=== PATIENT | female | born 1985 | race Caucasian/White ===

== ENCOUNTER 2018-07-10 14:04 | Emergency (ER) | payer MEDICAID ==
--- NOTE | 2018-07-10 14:13 | EDM.PDOC ---
ED HPI GENERAL MEDICAL PROBLEM - General Stated Complaint: SENT OVER FROM OB Time Seen by Provider: 07/10/18 14:07 - History of Present Illness INITIAL COMMENTS - FREE TEXT/NARRATIVE: HISTORY AND PHYSICAL: History of present illness: The patient is a 32-year-old female who is 29 weeks and was sent from labor and delivery for evaluation of complaints of left lower quadrant pain. The patient presented to labor and delivery with this left lower quadrant pain and she was evaluated with OB ultrasound CBC CMP and urine test, which I reviewed and are within normal limits except for the 4% bandemia and NST and Dr. Whitaker had contacted me because of her concern about the exquisite tenderness on palpation of the left lower quadrant area. She says the baby is fine and there is no related issues and she has informed me that the patient's tenderness is down low on the left lower abdomen near her old C- section scar. Dr. Whitaker did contact our surgeon on-call doctor Jory who recommended that the patient come to the ED for further testing. She and I have discussed the testing options we have available and the patient was sent here for evaluation by us. Dr. Whitaker did say that the patient has only one prior visit in April. On my interview with the patient she says the pain started suddenly at about 12 noon yesterday and was in the left lower quadrant and it comes and goes in intensity. It sometimes will be completely nonexistent and that will come back very strongly. She's had no fevers chills nausea vomiting or urinary complaints with this. She's had good pedal movement and no vaginal bleeding. She's had no flank pain and says the pain is localized to one area at the left lower quadrant which is very deep in her abdomen. She said that last night she woke up from sleep with the pain that was so severe that she was not able to go back to sleep and she was doubled over. Now in the ED she saying that the pain is not as bad but is more when you touch it. She has had one episode of watery diarrhea here in the ED which was not black or bloody yesterday she had had a normal bowel movement. The patient says she has never had a kidney stone colonic issues or any issues with inguinal hernias or incisional hernias. Review of systems: As per history of present illness and below otherwise all systems reviewed and negative. Past medical history: As per history of present illness and as reviewed below otherwise noncontributory. Surgical history: As per history of present illness and as reviewed below otherwise noncontributory. Social history: No reported history of drug or alcohol abuse. Family history: As per history of present illness and as reviewed below otherwise noncontributory. Physical exam: General: Well-developed well-nourished obese female who is nontoxic and ambulatory in the ED. She moves easily without any distress HEENT: Atraumatic, normocephalic, negative for conjunctival pallor or scleral icterus, mucous membranes moist, throat clear, neck supple, nontender, trachea midline. Lungs: Clear to auscultation, breath sounds equal bilaterally, chest nontender. Heart: S1S2, regular rate and rhythm no murmurs Abdomen: Soft, nondistended, sounds are slightly hypoactive. Negative for costovertebral tenderness. At the left lower abdomen just above the inguinal area there is exquisite tenderness with palpation but no palpable deformity of the abdominal wall is appreciated. The old Pfannenstiel scar is intact and the pain is just lateral to that and slightly superior. There is no gross fullness and there is no inguinal adenopathy or femoral tenderness or defects. Pelvis: Stable nontender. Genitourinary: Deferred. Rectal: Deferred. Extremities: Atraumatic, negative for cords or calf pain. Neurovascular unremarkable. Neuro: Awake, alert, oriented. Cranial nerves II through XII unremarkable. Cerebellum unremarkable. Motor and sensory unremarkable throughout. Exam nonfocal. Diagnostics: Patient already had CBC CMP and UA done at labor and delivery and I reviewed those tests CT scan of the abdomen and pelvis Therapeutics: IV placement morphine I discussed with the patient my conversation with Dr. Whitaker and the OB M.D. feels that if the CT scan is indicated she does not feel like there is any untoward effects of doing that as the patient is 29 weeks . The patient is aware that the baby will get radiation exposure and due to the discomfort and our concern about the severity of this discomfort she is very agreeable to doing the test as she wants to know what is causing the severe pain. Case was rediscussed with Dr. Whitaker at 1626 PM; he is aware of the CT scan findings and my examination and both of us are comfortable with discharge home as the patient has a follow-up appointment this week. I've advised the patient to use [id number] Tylenol and cold packs as well as resting. OB thinks this is likely more musculoskeletal in etiology at this point. I have advised the patient to monitor her symptoms and reasons to return Impression: Left lower quadrant pain, third trimester stable Definitive disposition and diagnosis as appropriate pending reevaluation and review of above. Left Lower Abdominal Pain Pain Score (Numeric/FACES): 2 - Related Data Allergies Allergy/AdvReac Type Severity Reaction Status Date / Time No Known Allergies Allergy Verified 07/10/18 14:16 Home Meds: Home Meds . [No Known Home Meds] 07/10/18 [History] ED ROS GENERAL - Review of Systems Review Of Systems: ROS reveals no pertinent complaints other than HPI. ED EXAM, GENERAL - Physical Exam Exam: See Below (see dictation) Course - Vital Signs Last Recorded V/S: Last Vital Signs Temp 36.7 C 07/10/18 14:17 Pulse 96 07/10/18 14:17 Resp 16 07/10/18 14:17 BP 106/81 07/10/18 14:17 Pulse Ox 96 07/10/18 14:17 - Orders/Labs/Meds Orders: Active Orders 24 hr Category Date Time Status Sodium Chloride 0.9% [Saline Flush] Med 07/10/18 14:27 Active 10 ml FLUSH ASDIRECTED PRN Sodium Chloride 0.9% [Saline Flush] Med 07/10/18 14:27 Active 2.5 ml FLUSH ASDIRECTED PRN Saline Lock Insert [OM.PC] Stat Oth 07/10/18 14:27 Ordered Medication Orders Sodium Chloride (Saline Flush) 10 ml FLUSH ASDIRECTED PRN PRN Reason: Keep Vein Open Sodium Chloride (Saline Flush) 2.5 ml FLUSH ASDIRECTED PRN PRN Reason: Keep Vein Open Meds: Medications Generic Name Dose Route Start Last Admin Trade Name Freq PRN Reason Stop Dose Admin Sodium Chloride 10 ml 07/10/18 14:27 Saline Flush FLUSH ASDIRECTED PRN Keep Vein Open Sodium Chloride 2.5 ml 07/10/18 14:27 Saline Flush FLUSH ASDIRECTED PRN Keep Vein Open Discontinued Medications Generic Name Dose Route Start Last Admin Trade Name Freq PRN Reason Stop Dose Admin Iopamidol 100 ml 07/10/18 15:10 07/10/18 15:11 Isovue Multipack-370 (76%) IVPUSH 07/10/18 15:11 100 ml ONETIME ONE Administration Morphine Sulfate 4 mg 07/10/18 14:36 07/10/18 15:07 Morphine IVPUSH 07/10/18 14:37 4 mg ONETIME ONE Administration Departure - Departure Time of Disposition: 16:35 Disposition: Home, Self-Care 01 Condition: Good Clinical Impression: Left lower quadrant abdominal pain during - Discharge Information Referrals: PCP,Unknown [Primary Care Provider] - Additional Instructions: The following information is given to patients seen in the emergency department who are being discharged to home. This information is to outline your options for follow-up care. We provide all patients seen in our emergency department with a follow-up referral. The need for follow-up, as well as the timing and circumstances, are variable depending upon the specifics of your emergency department visit. If you don't have a primary care physician on staff, we will provide you with a referral. We always advise you to contact your personal physician following an emergency department visit to inform them of the circumstance of the visit and for follow-up with them and/or the need for any referrals to a consulting specialist. The emergency department will also refer you to a specialist when appropriate. This referral assures that you have the opportunity for followup care with a specialist. All of these measure are taken in an effort to provide you with optimal care, which includes your followup. Under all circumstances we always encourage you to contact your private physician who remains a resource for coordinating your care. When calling for followup care, please make the office aware that this follow-up is from your recent emergency room visit. If for any reason you are refused follow-up, please contact the [facility] emergency department at and ask to speak to the emergency department charge nurse. [facility] [address] [place] [address] [phone] Push hydration and try to avoid caffeinated products and use [id number] Tylenol for pain management. He may also use ice packs to areas of discomfort and also try to do all movements such as getting out of bed and getting in and out of the car and all position changes more slowly. Please keep your appointment this week at the [facility] and return to ER as needed and as discussed - My Orders Last 24 Hours: My Active Orders 07/10/18 14:27 Sodium Chloride 0.9% [Saline Flush] 10 ml FLUSH ASDIRECTED PRN Sodium Chloride 0.9% [Saline Flush] 2.5 ml FLUSH ASDIRECTED PRN Saline Lock Insert [OM.PC] Stat - Assessment/Plan Last 24 Hours: My Active Orders 07/10/18 14:27 Sodium Chloride 0.9% [Saline Flush] 10 ml FLUSH ASDIRECTED PRN Sodium Chloride 0.9% [Saline Flush] 2.5 ml FLUSH ASDIRECTED PRN Saline Lock Insert [OM.PC] Stat
[2018-07-10] MEDS ORDERED: Sodium Chloride 0.9% 10 ML Syringe FLUSH PRN (14:27)
[2018-07-10] MEDS ORDERED: Sodium Chloride 0.9% 2.5 ML Syringe FLUSH PRN (14:27)
[2018-07-10] MEDS ORDERED: Morphine 2 MG/ML Syringe IVPUSH ONE (14:36)
[2018-07-10] MEDS ORDERED: Iopamidol 755 MG/ML 500 ML Multipack Bottle IVPUSH ONE (15:10)
--- NOTE | 2018-07-10 16:02 | CT ---
Indication: Left lower quadrant pain Technique: Routine post-contrast CT abdomen and pelvis. Consent provided to scan patient in 3rd trimester. Please note that all CT scans at this facility use dose modulation, iterative reconstruction, and/or weight-based dosing when appropriate to reduce radiation dose to as low as reasonably achievable. Comparison: No comparison Findings: Lung bases clear. No pleural effusion. Normal liver. Status post cholecystectomy. No biliary obstruction. Normal pancreas. Normal spleen. Normal adrenal glands and kidneys. No renal stone or ureteral stone. No hydroureter or hydronephrosis. No perinephric or periureteral stranding. No adenopathy. No bowel obstruction, free air or free fluid. No evidence of diverticulitis. Normal appendix. No fracture. Third trimester gestation noted with placenta anterior and baby with a vertex presentation. Normal bladder. Pelvic phleboliths. No hernia defect. Impression: Normal CT abdomen and pelvis with 3rd trimester intrauterine gestation. No evidence of diverticulitis or hydronephrosis. No adnexal mass or pelvic free fluid. Normal appendix. No evidence of pyelonephritis. Please note that all CT scans at this facility use dose modulation, iterative reconstruction, and/or weight-based dosing when appropriate to reduce radiation dose to as low as reasonably achievable. Dictated by Nathen Chaparro MD @ Jul 10 2018 3:55PM Signed by Dr. Nathen Chaparro @ Jul 10 2018 4:02PM
== END 2018-07-10 16:43 | disposition home or self-care (01) ==
LOC: MW.ED 14:04
DX: O99.89 Other specified diseases and conditions complicating pregnancy, childbirth and the puerperium (principal); R10.32 Left lower quadrant pain; Z3A.29 29 weeks gestation of pregnancy
CPT/HCPCS: 74177; 96374; 99284; J2270; Q9967

== ENCOUNTER 2018-09-15 05:28 | Inpatient (IN) | payer MEDICAID ==
[2018-09-15] MEDS ORDERED: Sodium Chloride 0.9% 2.5 ML Syringe FLUSH PRN (05:31)
[2018-09-15] MEDS ORDERED: Citric Acid/Sodium Citrate Solution 30 ML Cup PO ONE (05:31)
[2018-09-15] MEDS ORDERED: Sodium Chloride 0.9% 10 ML SDV IV PRN (05:31)
[2018-09-15] MEDS ORDERED: Sodium Chloride 0.9% 10 ML Syringe FLUSH PRN (05:31)
[2018-09-15] MEDS ORDERED: Oxytocin/0.9 % Sodium Chloride 30 UNIT/500 ML BAG IV SCH (05:45)
[2018-09-15] MEDS ORDERED: Diphtheria,Pertussis(Acell),Tetanus Vaccine 0.5 ML Syringe IM ONE (06:01)
[2018-09-15] MEDS: Lactated Ringers 1,000 ML IV SCH ×5 (06:11→19:49)
[2018-09-15] MEDS ORDERED: Oxytocin 10 Units/1 ML SDV ONE ×2 (06:25→06:26)
[2018-09-15] MEDS ORDERED: Morphine PF 10 MG/10 ML SDV ONE (06:25)
[2018-09-15] MEDS ORDERED: ceFAZolin/Dextrose,Iso-Osmotic 2 GM/50 ML Duplex Bag IV ONE (06:26)
[2018-09-15] MEDS ORDERED: ePHEDrine 50 MG/ML SDV ONE (06:26)
--- NOTE | 2018-09-15 06:36 | PCM.PREANE ---
Preanesthetic Assessment - Anesthesia/Transfusion/Family Hx Anesthesia History: Prior Anesthesia Without Reaction Other Type of Anesthesia Reaction Comment: "had hard time getting spinal in with last c/section" Family History of Anesthesia Reaction: No Transfusion History: No Prior Transfusion(s) Intubation History: Unknown - Review of Systems General: No Symptoms Pulmonary: No Symptoms Cardiovascular: No Symptoms Gastrointestinal: No Symptoms Neurological: No Symptoms Other: Reports: None - Physical Assessment Height: 5 ft 3.75 in Weight: 126.552 kg ASA Class: 2 Mental Status: Alert & Oriented x3 Airway Class: Mallampati = 2 Dentition: Reports: Normal Dentition, Missing Tooth/Teeth (bottom front tooth) Thyro-Mental Finger Breadths: 3 Mouth Opening Finger Breadths: 3 ROM/Head Extension: Full Lungs: Clear to Auscultation, Normal Respiratory Effort Cardiovascular: Regular Rate, Regular Rhythm - Lab Values: Laboratory Last Values WBC 9.39 K/uL (4.0-11.0) 09/15/18 06:10 RBC 3.64 M/uL (4.30-5.90) L 09/15/18 06:10 Hgb 11.5 g/dL (12.0-16.0) L 09/15/18 06:10 Hct 34.8 % (36.0-46.0) L 09/15/18 06:10 MCV 95.6 fL (80.0-98.0) 09/15/18 06:10 MCH 31.6 pg (27.0-32.0) 09/15/18 06:10 MCHC 33.0 g/dL (31.0-37.0) 09/15/18 06:10 RDW Std Deviation 48.0 fl (28.0-62.0) 09/15/18 06:10 RDW Coeff of Beba 14 % (11.0-15.0) 09/15/18 06:10 Plt Count 193 K/uL (150-400) 09/15/18 06:10 MPV 12.20 fL (7.40-12.00) H 09/15/18 06:10 Nucleated RBC % 0.0 /100WBC 09/15/18 06:10 Nucleated RBCs # 0 K/uL 09/15/18 06:10 - Allergies Allergies/Adverse Reactions: Allergies Allergy/AdvReac Type Severity Reaction Status Date / Time No Known Allergies Allergy Verified 09/15/18 05:30 - Blood Blood Available: No - Anesthesia Plan Pre-Op Medication Ordered: None - Acknowledgements Anesthesia Type Planned: Spinal (general anesthesia back-up plan) Pt an Appropriate Candidate for the Planned Anesthesia: Yes Alternatives and Risks of Anesthesia Discussed w Pt/Guardian: Yes Pt/Guardian Understands and Agrees with Anesthesia Plan: Yes PreAnesthesia Questionnaire HEENT History: Reports: Other (See Below) Other HEENT History: wears glasses Cardiovascular History: Reports: None Respiratory History: Reports: None Gastrointestinal History: Reports: Other (See Below) Other Gastrointestinal History: occasional heartburn with Genitourinary History: Reports: None [employer] History: Reports: Musculoskeletal History: Reports: Fracture Other Musculoskeletal History: hx fx wrist Neurological History: Reports: None Psychiatric History: Reports: None Endocrine/Metabolic History: Reports: Obesity/BMI 30+ Hematologic History: Reports: Anemia Immunologic History: Reports: None Oncologic (Cancer) History: Reports: None Dermatologic History: Reports: None - Infectious Disease History Infectious Disease History: Reports: None - Past Surgical History Head Surgeries/Procedures: Reports: None HEENT Surgical History: Reports: None Cardiovascular Surgical History: Reports: None Respiratory Surgical History: Reports: None GI Surgical History: Reports: Cholecystectomy Female Surgical History: Reports: Section Endocrine Surgical History: Reports: None Neurological Surgical History: Reports: None Musculoskeletal Surgical History: Reports: None Oncologic Surgical History: Reports: None Dermatological Surgical History: Reports: None - SUBSTANCE USE Smoking Status *Q: Former Smoker Tobacco Use Within Last Twelve Months: Cigarettes Recreational Drug Use History: No - HOME MEDS Home Medications: Home Meds PNV95/Ferrous Fumarate/FA [ Vitamin Tablet] 1 tab PO DAILY 09/13/18 [ History] - CURRENT (IN HOUSE) MEDS Current Meds: Current Medications Cefazolin Sodium/Dextrose 3 gm (/ Premix) 75 mls @ 100 mls/hr IV ONETIME ONE Stop: 09/15/18 08:14 Lactated Ringer's (Ringers, Lactated) 1,000 mls @ 500 mls/hr IV BOLUS MEAGAN Oxytocin/Sodium Chloride (Oxytocin 30 Unit/500 Ml-Ns) 30 unit in 500 mls @ 250 mls/hr IV TITRATE MEAGAN Sodium Chloride (Saline Flush) 10 ml FLUSH ASDIRECTED PRN PRN Reason: Keep Vein Open Sodium Chloride (Saline Flush) 2.5 ml FLUSH ASDIRECTED PRN PRN Reason: Keep Vein Open Sodium Chloride (Normal Saline) 10 ml IV ASDIRECTED PRN PRN Reason: IV Use Discontinued Medications Cefazolin Sodium/Dextrose (Ancef) Confirm Administered Dose 2 gm IV .STK-MED ONE Stop: 09/15/18 06:27 Citric Acid/Sodium Citrate (Bicitra Solution) 30 ml PO ONETIME ONE Stop: 09/15/18 05:32 Diphtheria/Tetanus/Acell Pertussis (Adacel) 0.5 ml IM .ONCE ONE Stop: 09/15/18 06:02 Ephedrine Sulfate (Ephedrine Sulfate) Confirm Administered Dose 50 mg .ROUTE .STK-MED ONE Stop: 09/15/18 06:27 Morphine Sulfate (Duramorph Pf) Confirm Administered Dose 10 mg .ROUTE .STK-MED ONE Stop: 09/15/18 06:26 Oxytocin (Pitocin) Confirm Administered Dose 10 unit .ROUTE .STK-MED ONE Stop: 09/15/18 06:26 Oxytocin (Pitocin) Confirm Administered Dose 10 unit .ROUTE .STK-MED ONE Stop: 09/15/18 06:27
[2018-09-15] MEDS ORDERED: Propofol 200 MG/20 ML SDV ONE (07:40)
[2018-09-15] MEDS ORDERED: Phenylephrine/Normal Saline 100 MCG/ML 10 ML Syringe ONE (08:39)
[2018-09-15] MEDS ORDERED: Octyl 2-Cyanoacrylate 1 Tube ONE (09:59)
[2018-09-15] MEDS ORDERED: Bisacodyl 10 MG Supp RECTAL PRN (10:24)
[2018-09-15] MEDS ORDERED: diphenhydrAMINE 50 MG/ML SDV IVPUSH PRN ×2 (10:24→10:37)
[2018-09-15] MEDS ORDERED: Acetaminophen/oxyCODONE 325-5 MG Tab PO PRN ×2 (10:24→10:37)
[2018-09-15] MEDS ORDERED: Ondansetron 4 MG/2 ML SDV IVPUSH PRN ×2 (10:24→10:37)
[2018-09-15] MEDS ORDERED: Lanolin 100% Cream 7 GM Tube TOP PRN (10:24)
[2018-09-15] MEDS ORDERED: Nalbuphine 10 MG/1 ML Vial IVPUSH PRN (10:37)
[2018-09-15] MEDS ORDERED: Naloxone 0.4 MG/ML Syringe IVPUSH PRN (10:37)
[2018-09-15] MEDS: Ketorolac 30 MG/ML SDV IVPUSH SCH ×3 (10:47→22:40)
[2018-09-15] MEDS: fentaNYL 100 MCG/2 ML SDV IVPUSH PRN ×2 (10:48→11:02)
--- NOTE | 2018-09-15 11:33 | PCM.POSTAN ---
POST ANESTHESIA ASSESSMENT - MENTAL STATUS Mental Status: Alert, Oriented - RESPIRATORY Respiratory Status: Respiratory Rate WNL, Airway Patent, O2 Saturation Stable - CARDIOVASCULAR CV Status: Pulse Rate WNL, Blood Pressure Stable - GASTROINTESTINAL GI Status: No Symptoms - PAIN Pain Score: 3 - POST OP HYDRATION Hydration Status: Adequate & Stable - OBSERVATIONS Free Text/Narrative:: no anesthesia problems
--- NOTE | 2018-09-15 19:47 | PCM.OPNOTE ---
- General Post-Op/Procedure Note Date of Surgery/Procedure: 09/15/18 Operative Procedure(s): Repeat lower transverse Findings: Live male delivered at 914am , 8/8 weight 3610g Pre Op Diagnosis: 32 yo @ 39w0d. Previous . Morbid obesity Post-Op Diagnosis: same Anesthesia Technique: Spinal Primary Surgeon: Sari Antonio Head Animal Trainer: kaleb Fluid Replacement, Intraop: 4,000 Output, Urine Amount: 200 EBL in mLs: 600 Complications: None Condition: Good Free Text/Narrative:: Intake & Output 09/15/18 09/15/18 09/15/18 06:59 14:59 22:59 Intake Total 4300 Output Total 600 800 Balance 3700 -800
[2018-09-15] MEDS ORDERED: Promethazine 25 MG Tab PO ONE (21:00)
[2018-09-15] MEDS: Docusate Sodium 100 MG Cap PO SCH (21:50)
--- NOTE | 2018-09-16 01:20 | OR ---
DATE OF PROCEDURE: 09/15/2018 SURGEON: JEWEL PHAM PREOPERATIVE DIAGNOSES: 1. 32-year-old, -0-2-1, at 39 weeks 0 days, with history of previous section. 2. Morbid obesity. POSTOPERATIVE DIAGNOSES: 1. 32-year-old, -0-2-1, at 39 weeks 0 days, with history of previous section. 2. Morbid obesity. PROCEDURE: Repeat low transverse section. ESTIMATED BLOOD LOSS: 600. IV FLUIDS: 4000. URINE OUTPUT: 200. ANESTHESIA: Spinal. NOTES AND FINDINGS: A live male delivered at 9:14 a.m. with the aid of Kiwi vacuum. score is 8 and 8, weight is 3610 g. BRIEF HISTORY: She is a 32-year-old, -0-2-1, at 39 weeks 0 days, who was term , had a low-risk . She was desiring a repeat due to a history of previous . She was also going to adopt the baby and all paperwork was done. She was explained the risks, benefits, and alternatives of procedure, and she decided to proceed. DESCRIPTION OF PROCEDURE: The patient was taken to the operating room, where spinal anesthesia was performed. She was prepared and draped in the dorsal supine position with a leftward tilt. An incision was made about 8 cm above the pubic symphysis in order to avoid the redundant pelvic-abdominal fold. A transverse incision was made and carried down to the fascia with the Bovie. The fascia was incised and extended upwards and laterally. The rectus muscle was from the fascia superiorly and inferiorly. The abdomen was entered in carefully with the aid of the Allis, the Michelet, and hemostat. When the peritoneum was entered in, it was extended upwards and laterally with manual traction. The Phil retractor was then placed in without difficulty. The fetus was in cephalic position as noted. A bladder flap was created. Lower uterine incision was made and fetus was in cephalic position. Fundal pressure was attempted, but because of difficulty of delivery of the head, the vacuum was applied with subsequent delivery of the head. The shoulder was then delivered without difficulty and the body. The cord was clamped and cut. The was handed over to the awaiting sandblasting supervisor. The uterus was repaired in 2 layers, first layer was with 0 Vicryl and second layer was with 0 Monocryl. The Pihl retractor was then removed. The gutters were cleaned. The incision was inspected and noted to be hemostatic. The peritoneum was then closed without difficulty. Then, the fascia was closed with PDS in a continuous fashion. The subcutaneous fat was also approximated with plain gut. The skin was closed with 3-0 Monocryl on a Johnny needle. All instrument and pad counts were correct x2. The patient tolerated the procedure well and was taken to the recovery room in stable condition. DEMI JOHNS /[id number] ANTOLIN
[2018-09-16] MEDS: Ketorolac 30 MG/ML SDV IVPUSH SCH ×2 (04:35→10:11)
--- NOTE | 2018-09-16 06:32 | PCM48HPAN ---
Post Anesthesia Note - EVALUATION WITHIN 48HRS OF ANESTHETIC Vital Signs in Normal Range: Yes Patient Participated in Evaluation: Yes Respiratory Function Stable: Yes Airway Patent: Yes Cardiovascular Function Stable: Yes Hydration Status Stable: Yes Pain Control Satisfactory: Yes Nausea and Vomiting Control Satisfactory: Yes Mental Status Recovered: Yes Resp Rate: 15 - COMMENTS/OBSERVATIONS Free Text/Narrative:: no anesthesia problems
[2018-09-16] MEDS: Docusate Sodium 100 MG Cap PO SCH ×2 (10:11→21:00)
--- NOTE | 2018-09-16 13:31 | PCM.PNPP ---
- General Info Date of Service: 09/16/18 Subjective Update: 32 yo p2 s/p Repeat lower segment , PPD1 , ambulating , voiding and tolerating regular diet Functional Status: Reports: Pain Controlled, Tolerating Diet, Ambulating, Urinating - Review of Systems General: Reports: No Symptoms HEENT: Reports: No Symptoms Pulmonary: Reports: No Symptoms Cardiovascular: Reports: No Symptoms Gastrointestinal: Reports: No Symptoms Genitourinary: Reports: No Symptoms Musculoskeletal: Reports: No Symptoms Skin: Reports: No Symptoms Neurological: Reports: No Symptoms Psychiatric: Reports: No Symptoms - General Info Date of Service: 09/16/18 - Patient Data Vital Signs - Most Recent: Last Vital Signs Temp 36.6 C 09/16/18 07:51 Pulse 88 09/16/18 08:00 Resp 16 09/16/18 09:00 BP 116/56 L 09/16/18 07:51 Pulse Ox 95 09/16/18 09:00 Weight - Most Recent: 126.552 kg I&O - Last 24 Hours: Intake & Output 09/15/18 09/16/18 09/16/18 22:59 06:59 14:59 Intake Total 4000 Output Total 1000 1300 Balance 3000 -1300 Lab Results - Last 24 Hours: Laboratory Results - last 24 hr 09/16/18 Range/Units 05:28 Hgb 9.0 L (12.0-16.0) g/dL Hct 27.7 L (36.0-46.0) % Med Orders - Current: Current Medications Bisacodyl (Dulcolax) 10 mg RECTAL ONETIME PRN PRN Reason: Constipation Diphenhydramine HCl (Benadryl) 25 mg IVPUSH Q6H PRN PRN Reason: Itching or Nausea Docusate Sodium (Colace) 100 mg PO BID [facility] Last Admin: 09/16/18 10:11 Dose: 100 mg Emollient Ointment (Lansinoh Hpa) 0 gm TOP ASDIRECTED PRN PRN Reason: Sore Nipples Fentanyl (Sublimaze) 50 mcg IVPUSH Q1H PRN PRN Reason: Pain (severe 7-10) Last Admin: 09/15/18 11:02 Dose: 50 mcg Lactated Ringer's (Ringers, Lactated) 1,000 mls @ 500 mls/hr IV BOLUS [facility] Last Admin: 09/15/18 08:15 Dose: 500 mls/hr Oxytocin/Sodium Chloride (Oxytocin 30 Unit/500 Ml-Ns) 30 unit in 500 mls @ 250 mls/hr IV TITRATE [facility] Lactated Ringer's (Ringers, Lactated) 1,000 mls @ 125 mls/hr IV ASDIRECTED [facility] Last Admin: 09/15/18 19:49 Dose: 125 mls/hr Ibuprofen (Motrin) 800 mg PO Q8H PRN PRN Reason: mild pain or fever Nalbuphine HCl (Nubain) 5 mg IVPUSH ASDIRECTED PRN PRN Reason: Itching Last Admin: 09/15/18 11:08 Dose: 5 mg Ondansetron HCl (Zofran) 4 mg IVPUSH Q4H PRN PRN Reason: Nausea/Vomiting Last Admin: 09/15/18 15:56 Dose: 4 mg Ondansetron HCl (Zofran) 4 mg IVPUSH Q6H PRN PRN Reason: Nausea Oxycodone/Acetaminophen (Percocet 325-5 Mg) 1 tab PO Q4H PRN PRN Reason: Pain (moderate 4-6) Oxycodone/Acetaminophen (Percocet 325-5 Mg) 2 tab PO Q4H PRN PRN Reason: Pain (moderate 4-6) Oxycodone/Acetaminophen (Percocet 325-5 Mg) 2 tab PO Q6H PRN PRN Reason: Pain (moderate 4-6) Sodium Chloride (Saline Flush) 10 ml FLUSH ASDIRECTED PRN PRN Reason: Keep Vein Open Sodium Chloride (Saline Flush) 2.5 ml FLUSH ASDIRECTED PRN PRN Reason: Keep Vein Open Sodium Chloride (Normal Saline) 10 ml IV ASDIRECTED PRN PRN Reason: IV Use Discontinued Medications Cefazolin Sodium/Dextrose (Ancef) Confirm Administered Dose 2 gm IV .STK-MED ONE Stop: 09/15/18 06:27 Citric Acid/Sodium Citrate (Bicitra Solution) 30 ml PO ONETIME ONE Stop: 09/15/18 05:32 Diphenhydramine HCl (Benadryl) 25 mg IVPUSH Q4H PRN PRN Reason: Itching Stop: 09/16/18 10:37 Diphtheria/Tetanus/Acell Pertussis (Adacel) 0.5 ml IM .ONCE ONE Stop: 09/15/18 06:02 Ephedrine Sulfate (Ephedrine Sulfate) Confirm Administered Dose 50 mg .ROUTE .STK-MED ONE Stop: 09/15/18 06:27 Cefazolin Sodium/Dextrose 3 gm (/ Premix) 75 mls @ 100 mls/hr IV ONETIME ONE Stop: 09/15/18 08:14 Cefazolin Sodium/Dextrose (Ancef) Confirm Administered Dose 50 mls @ as directed .ROUTE .STK-MED ONE Stop: 09/15/18 07:40 Ketorolac Tromethamine (Toradol) 30 mg IVPUSH Q6H [facility] Stop: 09/16/18 10:31 Last Admin: 09/16/18 10:11 Dose: 30 mg Morphine Sulfate (Duramorph Pf) Confirm Administered Dose 10 mg .ROUTE .STK-MED ONE Stop: 09/15/18 06:26 Naloxone HCl (Narcan) 0.1 mg IVPUSH ONETIME PRN PRN Reason: Respiratory Depression Stop: 09/16/18 10:37 Octyl Cyanoacrylate (Dermabond Advance) Confirm Administered Dose 1 applic .ROUTE .STK-MED ONE Stop: 09/15/18 10:00 Oxytocin (Pitocin) Confirm Administered Dose 10 unit .ROUTE .STK-MED ONE Stop: 09/15/18 06:26 Oxytocin (Pitocin) Confirm Administered Dose 10 unit .ROUTE .STK-MED ONE Stop: 09/15/18 06:27 Phenylephrine HCl (Phenylephrine In Ns 100 Mcg/Ml) Confirm Administered Dose 1 mg .ROUTE .STK-MED ONE Stop: 09/15/18 08:40 Promethazine HCl (Phenergan) 25 mg PO ONETIME ONE Stop: 09/15/18 21:01 Last Admin: 09/15/18 21:50 Dose: 25 mg Propofol (Diprivan 20 Ml) Confirm Administered Dose 200 mg .ROUTE .STK-MED ONE Stop: 09/15/18 07:41 - Interaction Support Person: Other (see below) - Recovery Exam Fundal Tone: Firm Fundal Level: At Umbilicus Fundal Placement: Left Lochia Amount: Scant Lochia Color: Rubra/Red Perineum Description: Intact, Minimal Bruising/Swelling Episiotomy/Laceration: Approximated Bladder Status: Voiding - Exam General: Alert HEENT: Pupils Equal Neck: Supple Lungs: Clear to Auscultation Cardiovascular: Regular Rate, Regular Rhythm GI/Abdominal Exam: Normal Bowel Sounds Extremities: Normal Inspection Skin: Warm Wound/Incisions: Healing Well Neurological: No New Focal Deficit Psy/Mental Status: Alert - Problem List & Annotations (1) Vaginal delivery SNOMED Code(s): 480106363 Code(s): O80 - ENCOUNTER FOR FULL-TERM UNCOMPLICATED DELIVERY Status: Acute Current Visit: Yes - Problem List Review Problem List Initiated/Reviewed/Updated: No - My Orders Last 24 Hours: My Active Orders 09/15/18 14:35 Code Status [Resuscitation Status] Routine 09/15/18 21:00 Docusate Sodium [Colace] 100 mg PO BID 09/16/18 16:31 Ibuprofen [Motrin] 800 mg PO Q8H PRN - Assessment Assessment:: 32yo P2 s/p POD1 , stable - Plan Plan:: Regular diet IVF Pain control as needed Incentive spirometry Lovenox 40mg daily
[2018-09-16] MEDS ORDERED: Enoxaparin 40 MG/0.4 ML Syringe SUBCUT SCH (13:45)
[2018-09-16] MEDS ORDERED: Ibuprofen 800 MG Tab PO PRN (16:31)
[2018-09-16] MEDS: Acetaminophen/oxyCODONE 325-5 MG Tab PO PRN ×2 (18:32→22:32)
[2018-09-17] MEDS: Acetaminophen/oxyCODONE 325-5 MG Tab PO PRN (03:19)
[2018-09-17] MEDS: Docusate Sodium 100 MG Cap PO SCH (08:37)
--- NOTE | 2018-09-17 09:06 | PCM.PNPP ---
- General Info Date of Service: 09/17/18 Subjective Update: 32 yo p2 s/p Repeat lower segment , PPD2 , ambulating , voiding and tolerating regular diet Functional Status: Reports: Pain Controlled, Tolerating Diet, Ambulating, Urinating - Review of Systems General: Reports: No Symptoms HEENT: Reports: No Symptoms Pulmonary: Reports: No Symptoms Cardiovascular: Reports: No Symptoms Gastrointestinal: Reports: No Symptoms Genitourinary: Reports: No Symptoms Musculoskeletal: Reports: No Symptoms Skin: Reports: No Symptoms Neurological: Reports: No Symptoms Psychiatric: Reports: No Symptoms - General Info Date of Service: 09/17/18 - Patient Data Vital Signs - Most Recent: Last Vital Signs Temp 36.4 C 09/17/18 07:44 Pulse 73 09/17/18 07:44 Resp 16 09/17/18 07:44 BP 114/69 09/17/18 07:44 Pulse Ox 97 09/17/18 07:44 Weight - Most Recent: 126.552 kg Med Orders - Current: Current Medications Bisacodyl (Dulcolax) 10 mg RECTAL ONETIME PRN PRN Reason: Constipation Diphenhydramine HCl (Benadryl) 25 mg IVPUSH Q6H PRN PRN Reason: Itching or Nausea Docusate Sodium (Colace) 100 mg PO BID [facility] Last Admin: 09/17/18 08:37 Dose: 100 mg Emollient Ointment (Lansinoh Hpa) 0 gm TOP ASDIRECTED PRN PRN Reason: Sore Nipples Enoxaparin Sodium (Lovenox) 40 mg SUBCUT Q24H [facility] Last Admin: 09/16/18 13:54 Dose: 40 mg Fentanyl (Sublimaze) 50 mcg IVPUSH Q1H PRN PRN Reason: Pain (severe 7-10) Last Admin: 09/15/18 11:02 Dose: 50 mcg Lactated Ringer's (Ringers, Lactated) 1,000 mls @ 500 mls/hr IV BOLUS [facility] Last Admin: 09/15/18 08:15 Dose: 500 mls/hr Oxytocin/Sodium Chloride (Oxytocin 30 Unit/500 Ml-Ns) 30 unit in 500 mls @ 250 mls/hr IV TITRATE [facility] Lactated Ringer's (Ringers, Lactated) 1,000 mls @ 125 mls/hr IV ASDIRECTED [facility] Last Admin: 09/15/18 19:49 Dose: 125 mls/hr Ibuprofen (Motrin) 800 mg PO Q8H PRN PRN Reason: mild pain or fever Last Admin: 09/16/18 21:00 Dose: 800 mg Nalbuphine HCl (Nubain) 5 mg IVPUSH ASDIRECTED PRN PRN Reason: Itching Last Admin: 09/15/18 11:08 Dose: 5 mg Ondansetron HCl (Zofran) 4 mg IVPUSH Q4H PRN PRN Reason: Nausea/Vomiting Last Admin: 09/15/18 15:56 Dose: 4 mg Ondansetron HCl (Zofran) 4 mg IVPUSH Q6H PRN PRN Reason: Nausea Oxycodone/Acetaminophen (Percocet 325-5 Mg) 1 tab PO Q4H PRN PRN Reason: Pain (moderate 4-6) Oxycodone/Acetaminophen (Percocet 325-5 Mg) 2 tab PO Q4H PRN PRN Reason: Pain (moderate 4-6) Last Admin: 09/17/18 03:19 Dose: 2 tab Oxycodone/Acetaminophen (Percocet 325-5 Mg) 2 tab PO Q6H PRN PRN Reason: Pain (moderate 4-6) Sodium Chloride (Saline Flush) 10 ml FLUSH ASDIRECTED PRN PRN Reason: Keep Vein Open Sodium Chloride (Saline Flush) 2.5 ml FLUSH ASDIRECTED PRN PRN Reason: Keep Vein Open Sodium Chloride (Normal Saline) 10 ml IV ASDIRECTED PRN PRN Reason: IV Use Discontinued Medications Cefazolin Sodium/Dextrose (Ancef) Confirm Administered Dose 2 gm IV .STK-MED ONE Stop: 09/15/18 06:27 Citric Acid/Sodium Citrate (Bicitra Solution) 30 ml PO ONETIME ONE Stop: 09/15/18 05:32 Diphenhydramine HCl (Benadryl) 25 mg IVPUSH Q4H PRN PRN Reason: Itching Stop: 09/16/18 10:37 Diphtheria/Tetanus/Acell Pertussis (Adacel) 0.5 ml IM .ONCE ONE Stop: 09/15/18 06:02 Ephedrine Sulfate (Ephedrine Sulfate) Confirm Administered Dose 50 mg .ROUTE .STK-MED ONE Stop: 09/15/18 06:27 Cefazolin Sodium/Dextrose 3 gm (/ Premix) 75 mls @ 100 mls/hr IV ONETIME ONE Stop: 09/15/18 08:14 Cefazolin Sodium/Dextrose (Ancef) Confirm Administered Dose 50 mls @ as directed .ROUTE .STK-MED ONE Stop: 09/15/18 07:40 Ketorolac Tromethamine (Toradol) 30 mg IVPUSH Q6H [facility] Stop: 09/16/18 10:31 Last Admin: 09/16/18 10:11 Dose: 30 mg Morphine Sulfate (Duramorph Pf) Confirm Administered Dose 10 mg .ROUTE .STK-MED ONE Stop: 09/15/18 06:26 Naloxone HCl (Narcan) 0.1 mg IVPUSH ONETIME PRN PRN Reason: Respiratory Depression Stop: 09/16/18 10:37 Octyl Cyanoacrylate (Dermabond Advance) Confirm Administered Dose 1 applic .ROUTE .STK-MED ONE Stop: 09/15/18 10:00 Oxytocin (Pitocin) Confirm Administered Dose 10 unit .ROUTE .STK-MED ONE Stop: 09/15/18 06:26 Oxytocin (Pitocin) Confirm Administered Dose 10 unit .ROUTE .STK-MED ONE Stop: 09/15/18 06:27 Phenylephrine HCl (Phenylephrine In Ns 100 Mcg/Ml) Confirm Administered Dose 1 mg .ROUTE .STK-MED ONE Stop: 09/15/18 08:40 Promethazine HCl (Phenergan) 25 mg PO ONETIME ONE Stop: 09/15/18 21:01 Last Admin: 09/15/18 21:50 Dose: 25 mg Propofol (Diprivan 20 Ml) Confirm Administered Dose 200 mg .ROUTE .STK-MED ONE Stop: 09/15/18 07:41 - Interaction Support Person: Other (see below) - Recovery Exam Fundal Tone: Firm Fundal Level: 1 Fingerbreadths Below Umbilicus Fundal Placement: Midline Lochia Amount: Scant Lochia Color: Rubra/Red Perineum Description: Intact, Minimal Bruising/Swelling Episiotomy/Laceration: Approximated Bladder Status: Voiding - Exam General: Alert HEENT: Pupils Equal Neck: Supple Lungs: Clear to Auscultation Cardiovascular: Regular Rate GI/Abdominal Exam: Normal Bowel Sounds Extremities: Normal Inspection Wound/Incisions: Dressing Dry and Intact Neurological: No New Focal Deficit Psy/Mental Status: Alert - Problem List & Annotations (1) Vaginal delivery SNOMED Code(s): 414748535 Code(s): O80 - ENCOUNTER FOR FULL-TERM UNCOMPLICATED DELIVERY Status: Acute Current Visit: Yes - Problem List Review Problem List Initiated/Reviewed/Updated: Yes - My Orders Last 24 Hours: My Active Orders 09/16/18 13:45 Enoxaparin [Lovenox] 40 mg SUBCUT Q24H 09/16/18 16:31 Ibuprofen [Motrin] 800 mg PO Q8H PRN - Assessment Assessment:: 32yo P2 s/p POD2 , stable - Plan Plan:: Discharge home today
== END 2018-09-17 12:20 | disposition home or self-care (01) | DRG 788 ==
LOC: MW.OB 05:28
PROVIDERS: ADMIT Obstetrics & Gynecology; ATTEND Obstetrics & Gynecology
PROC: 10D00Z1 Extraction of Products of Conception, Low, Open Approach (ICD-10-PCS; principal; 2018-09-15)
DX: O34.211 Maternal care for low transverse scar from previous cesarean delivery (principal); O99.214 Obesity complicating childbirth; O99.02 Anemia complicating childbirth; D64.9 Anemia, unspecified; E66.01 Morbid (severe) obesity due to excess calories; Z37.0 Single live birth; Z87.891 Personal history of nicotine dependence; Z3A.39 39 weeks gestation of pregnancy
CPT/HCPCS: 36415; 59025; 85014; 85018; 85027; 86850; 86900; 86901; A9270-GY; J0690; J1650; J1885; J2270; J2300; J2370; J2405; J2590; J2704; J3010; J7120